=== PATIENT | female | born 1960 | race Hispanic/Latino ===

== ENCOUNTER 2018-11-04 05:15 | Emergency (ER) | payer BC ==
[2018-11-04] MEDS ORDERED: ALUM & MAG HYDROX-SIMETHICONE 30 ML, LIDOCAINE VISCOUS 2% 15 ML PO ONE ×2 (05:36)
[2018-11-04] MEDS ORDERED: SUCRALFATE 1 GM/10 ML 1 GM UD PO ONE (05:36)
[2018-11-04 05:44] VITALS: TEMP 99.7
[2018-11-04] MEDS ORDERED: LIDOCAINE HCL 2% (MOUTH-THROAT) 15 ML UD ONE (05:47)
[2018-11-04] MEDS ORDERED: ALUM & MAG HYDROX-SIMETHICONE 30 ML UD ONE (05:48)
[2018-11-04] MEDS ORDERED: cefTRIAXone SODIUM 1 GM VIAL IM ONE (06:10)
[2018-11-04] MEDS ORDERED: CIPROFLOXACIN 500 MG TAB PO ONE (06:10)
[2018-11-04] MEDS ORDERED: FLUCONAZOLE 100 MG TAB PO ONE (06:12)
--- NOTE | 2018-11-04 06:18 | ED.PDOC ---
History of Present Illness - General Chief Complaint: General Stated Complaint: bone pain from ribs down Time Seen by Provider: 11/04/18 05:21 Source: patient Exam Limitations: no limitations - History of Present Illness Initial Comments: The patient is a 58-year-old female presenting to the emergency room secondary tocomplaints of bone pain. The patient's having some low back discomfort along with some pelvic discomfort. No significant vaginal discharge. She was recently treated for urinary tract infection. She 2 weeks ago she had a little bit of nausea and vomiting. She does have some mild epigastric discomfort palpation to left upper quadrant discomfort palpation here today. She is mildly diaphoretic. She is a diabetic and reports fair glucose control. She does take several medications that can worsen gastritis. Questionable fevers. No syncope or near-syncope. No chest pain or palpitations. No shortness of breath. No rash.symptoms have been ongoing for about 2 weeks. Patient reports a similar episode about 3 months ago as well. Timing/Duration: unsure Severity: moderate Improving Factors: nothing Worsening Factors: nothing Associated Symptoms: diaphoresis, fever/chills, loss of appetite, malaise, nausea/vomiting Allergies/Adverse Reactions: Allergies NO KNOWN ALLERGY Allergy (Verified 11/04/18 05:44) Home Medications: Ambulatory Orders Atorvastatin Calcium [Lipitor] 20 mg PO DAILY 06/03/16 Glyburide 5 mg PO DAILY 06/03/16 Meclizine HCl 25 mg PO Q6HRS PRN #14 tab 06/03/16 Metformin HCl 500 mg PO 06/03/16 Ondansetron [Zofran Odt] 4 mg PO Q4HR PRN #20 tab 06/03/16 Ciprofloxacin [Cipro] 500 mg PO BID #14 tab 11/04/18 Famotidine [Pepcid Tab] 20 mg PO BID #60 tab 11/04/18 Nitrofurantoin Monohydrate Mac [Macrobid] 100 mg PO BID #14 capsule 11/04/18 Review of Systems - Review of Systems Constitutional: States: diaphoresis, malaise EENTM: States: no symptoms reported Respiratory: States: no symptoms reported Cardiology: States: no symptoms reported Gastrointestinal/Abdominal: States: abdominal pain, nausea, vomiting Genitourinary: States: frequency Musculoskeletal: States: back pain Skin: States: no symptoms reported Neurological: States: no symptoms reported Endocrine: States: no symptoms reported All other Systems: No Change from Baseline Past Medical History (General) - Patient Medical History Hx Seizures: No Hx Stroke: No Hx Dementia: No Hx Asthma: No Hx of COPD: No Hx Cardiac Disorders: No Hx Congestive Heart Failure: No Hx Pacemaker: No Hx Hypertension: No Hx Thyroid Disease: No Hx Diabetes: Yes Hx Gastroesophageal Reflux: No Hx Renal Disease: No Hx Cancer: No Hx of HIV: No Hx Hepatitis C: No Hx MRSA: No Surgical History: Hysterectomy - Vaccination History Hx Tetanus, Diphtheria Vaccination: No Hx Influenza Vaccination: No Hx Pneumococcal Vaccination: No - Social History Hx Alcohol Use: No Family Medical History - Family History Mother Family History: No Known Physical Exam - Physical Exam General Appearance: Alert, Anxious Eye Exam: bilateral normal Ears, Nose, Throat: hearing grossly normal, normal ENT inspection, normal pharynx Neck: full range of motion, supple Respiratory: lungs clear, normal breath sounds, no respiratory distress Cardiovascular/Chest: normal peripheral pulses, regular rate, rhythm, no edema Peripheral Pulses: radial,right: 2+, radial,left: 2+, dorsalis pedis,right: 2+, dorsalis pedis,left: 2+ Gastrointestinal/Abdominal: non tender, soft Rectal Exam: deferred Back Exam: no vertebral tenderness, other - bilateral costovertebral angle tenderness adjacent toL3-L5 bilaterally Extremity: non-tender, normal inspection, no pedal edema, normal capillary refill 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 The patient is found to have a significant gastritis which may be contributed to by her diabetes medications as well as her other 2 issues. The patient does appear to have moderate constipation and needs to take a dose of milk of magnesia later today and another dose tomorrow. She needs to increase her fluid intake to reduce constipation as well. She also needs to increase her fiber intake and can take MiraLAX daily if needed additionally. This may be contributing significantly to her back pain as well. The patient also has a significant urinary tract infection. She apparently did get treated for urinary tract infection in [place] not long ago however it does not appear to have cleared. The patient was given a dose of Rocephin and ciprofloxacin here and will be continued on Macrobid and ciprofloxacin as an outpatient. she needs to follow up with her primary care doctor in 5 days for a repeat urinalysis to confirm clearance. For the gastritis the patient is going to be placed on Pepcid 20 mg twice daily for 1 month. Maalox can be used additionally as needed. ER warnings were given. - Results/Orders Results/Orders: EKG shows normal sinus rhythm at 84 bpm. Normal R-wave progression. Normal axis. Normal QT interval. No ST segment or T-wave changes indicative of acute ischemia. acute abdominal series shows no obvious chest pathology. She does have moderate constipation. No free air. No obstruction. Abnormal Lab Results 11/04/18 11/04/18 11/04/18 05:30 05:31 05:31 Absolute Neuts (auto) 7.50 H Absolute Lymphs (auto) 0.70 L Absolute Monos (auto) 0.90 H Neutrophils % 81.7 H Lymphocytes % 8.0 L Monocytes % 9.9 H Eosinophils % 0.2 L Sodium 131 L Potassium 3.4 L Chloride 99 L Carbon Dioxide 20 L Creatinine 0.57 L POC Glucose 196 H Random Glucose 195 H Serum Osmolality 267.4 L Globulin 3.9 H Albumin/Globulin Ratio 1.0 L Urine Glucose (UA) Urine Blood Urine Nitrite Ur Leukocyte Esterase Urine RBC Urine WBC Urine Bacteria 11/04/18 05:44 Absolute Neuts (auto) Absolute Lymphs (auto) Absolute Monos (auto) Neutrophils % Lymphocytes % Monocytes % Eosinophils % Sodium Potassium Chloride Carbon Dioxide Creatinine POC Glucose Random Glucose Serum Osmolality Globulin Albumin/Globulin Ratio Urine Glucose (UA) >=1000 H Urine Blood Moderate H Urine Nitrite Positive H Ur Leukocyte Esterase Trace H Urine RBC 3-5 H Urine WBC Tntc H Urine Bacteria 4+ H Laboratory Results - last 24 hr 11/04/18 11/04/18 11/04/18 05:30 05:30 05:31 WBC 9.2 RBC 4.46 Hgb 13.1 Hct 38.3 MCV 86.0 MCH 29.3 MCHC 34.1 RDW 13.1 Plt Count 231 MPV 8.5 Absolute Neuts (auto) 7.50 H Absolute Lymphs (auto) 0.70 L Absolute Monos (auto) 0.90 H Absolute Eos (auto) 0.00 Absolute Basos (auto) 0.00 Neutrophils % 81.7 H Lymphocytes % 8.0 L Monocytes % 9.9 H Eosinophils % 0.2 L Basophils % 0.2 Sodium 131 L Potassium 3.4 L Chloride 99 L Carbon Dioxide 20 L Anion Gap 15.4 BUN 11 Creatinine 0.57 L BUN/Creatinine Ratio 19.3 POC Glucose Random Glucose 195 H Serum Osmolality 267.4 L Lactic Acid 0.9 Calcium 8.5 Magnesium 2.0 Total Bilirubin 0.8 AST 28 ALT 31 Alkaline Phosphatase 86 Creatine Kinase 73 CK-MB (CK-2) 0.7 Troponin I < 0.02 B-Natriuretic Peptide < 5.0 Serum Total Protein 7.7 Albumin 3.8 Globulin 3.9 H Albumin/Globulin Ratio 1.0 L Lipase 33 TSH 1.69 Urine Color Urine Appearance Urine pH Ur Specific [place] Urine Protein Urine Glucose (UA) Urine Ketones Urine Blood Urine Nitrite Urine Bilirubin Urine Urobilinogen Ur Leukocyte Esterase Urine RBC Urine WBC Ur Epithelial Cells Urine Bacteria Urine HCG, Qual 11/04/18 11/04/18 11/04/18 05:31 05:31 05:44 WBC RBC Hgb Hct MCV MCH MCHC RDW Plt Count MPV Absolute Neuts (auto) Absolute Lymphs (auto) Absolute Monos (auto) Absolute Eos (auto) Absolute Basos (auto) Neutrophils % Lymphocytes % Monocytes % Eosinophils % Basophils % Sodium Potassium Chloride Carbon Dioxide Anion Gap BUN Creatinine BUN/Creatinine Ratio POC Glucose 196 H Random Glucose Serum Osmolality Lactic Acid Calcium Magnesium Total Bilirubin AST ALT Alkaline Phosphatase Creatine Kinase CK-MB (CK-2) Troponin I B-Natriuretic Peptide Serum Total Protein Albumin Globulin Albumin/Globulin Ratio Lipase TSH Urine Color Yellow Urine Appearance Sl cloudy Urine pH 5.5 Ur Specific [place] 1.010 Urine Protein 30 Urine Glucose (UA) >=1000 H Urine Ketones Negative Urine Blood Moderate H Urine Nitrite Positive H Urine Bilirubin Negative Urine Urobilinogen 0.2 Ur Leukocyte Esterase Trace H Urine RBC 3-5 H Urine WBC Tntc H Ur Epithelial Cells 3-5 Urine Bacteria 4+ H Urine HCG, Qual Negative Departure - Departure Clinical Impression: Cystitis Gastritis Qualifiers: Gastritis type: unspecified gastritis Chronicity: acute Gastritis bleeding: without bleeding Qualified Code(s): K29.00 - Acute gastritis without bleeding Constipation Qualifiers: Constipation type: unspecified constipation type Qualified Code(s): K59.00 - Constipation, unspecified Disposition: Discharge to Home or Self Care Condition: Fair Departure Forms: ED Discharge - Pt. Copy, Patient Portal Self Enrollment Instructions: Constipation, Adult (DC), Urinary Tract Infection, Adult (DC), Gastritis (DC) Diet: diabetic diet Activity: increase activity as tolerated Prescriptions: Ciprofloxacin [Cipro] 500 mg PO BID #14 tab Famotidine [Pepcid Tab] 20 mg PO BID #60 tab Nitrofurantoin Monohydrate Mac [Macrobid] 100 mg PO BID #14 capsule Home Medications: Ambulatory Orders Atorvastatin Calcium [Lipitor] 20 mg PO DAILY 06/03/16 Glyburide 5 mg PO DAILY 06/03/16 Meclizine HCl 25 mg PO Q6HRS PRN #14 tab 06/03/16 Metformin HCl 500 mg PO 06/03/16 Ondansetron [Zofran Odt] 4 mg PO Q4HR PRN #20 tab 06/03/16 Ciprofloxacin [Cipro] 500 mg PO BID #14 tab 11/04/18 Famotidine [Pepcid Tab] 20 mg PO BID #60 tab 11/04/18 Nitrofurantoin Monohydrate Mac [Macrobid] 100 mg PO BID #14 capsule 11/04/18 Additional Instructions: the patient is a 58-year-old female presenting to the emergency room secondary to atypical symptoms spanning over a period of a couple of months. The patient is found to have a significant gastritis which may be contributed to by her diabetes medications as well as her other 2 issues. The patient does appear to have moderate constipation and needs to take a dose of milk of magnesia later today and another dose tomorrow. She needs to increase her fluid intake to reduce constipation as well. She also needs to increase her fiber intake and can take MiraLAX daily if needed additionally. This may be contributing significantly to her back pain as well. The patient also has a significant urinary tract infection. She apparently did get treated for urinary tract infection in [place] not long ago however it does not appear to have cleared. The patient was given a dose of Rocephin and ciprofloxacin here and will be continued on Macrobid and ciprofloxacin as an outpatient. she needs to follow up with her primary care doctor in 5 days for a repeat urinalysis to confirm clearance. For the gastritis the patient is going to be placed on Pepcid 20 mg twice daily for 1 month. Maalox can be used additionally as needed. Take antibiotics with food to prevent further stomach upset. ER warnings were given.
[2018-11-04] MEDS ORDERED: LIDOCAINE 1% 2 ML VIAL INJ ONE (06:25)
--- NOTE | 2018-11-04 06:31 | RAD ---
Acute abdominal series on 11/04/2018 CLINICAL INDICATION: Low back pain, diaphoresis COMPARISON: None FINDINGS: CHEST: The lungs are clear. Cardiac, hilar and mediastinal contours are within normal limits. Pulmonary vascularity is within normal limits. No bony abnormality is noted. ABDOMEN: There is no free air. Mild increased stool is noted in the colon suggesting mild constipation. Bowel gas pattern is nonspecific. A few calcifications in the pelvis are consistent with phleboliths. No other abnormal calcification or mass effect is noted. No bony abnormality is noted. IMPRESSION: 1. No acute cardiopulmonary disease. 2. Mild increased stool suggesting mild constipation with an otherwise nonspecific abdomen. Electronically signed by: Vasile Marcos 11/04/2018 6:28 AM CDT
[2018-11-04 06:48] VITALS: BP 124/78; O2SAT 100
== END 2018-11-04 06:49 | disposition home or self-care (01) ==
LOC: ER 05:15
DX: N30.90 Cystitis, unspecified without hematuria (principal); K29.00 Acute gastritis without bleeding; K59.00 Constipation, unspecified; E11.9 Type 2 diabetes mellitus without complications; Z87.440 Personal history of urinary (tract) infections; Z79.84 Long term (current) use of oral hypoglycemic drugs; Z79.899 Other long term (current) drug therapy
CPT/HCPCS: 36415; 74019; 80053; 81001; 81025; 82550; 82553; 82948; 83605; 83690; 83735; 83880; 84443; 84484; 85025; 85651; 87077; 87086; 87186; J0696